=== PATIENT | male | born 1940 | race Caucasian/White ===

== ENCOUNTER → 2017-02-03 | Outpatient (CLI) | payer MEDICARE, BC ==
[~2017-02-03] MED LIST: ACTOS PO; ALLEGRA PO; KCL PO; LIPITOR; NORVASC PO
--- NOTE | ~2017-02-03 | US85 ---
[facility] A Service of [facility] & [facility] RADIOLOGY TEXT RESULTS PATIENT: MERCY NOLAND JR LOCATION: CNIV : 36 UNIT #: [id number] AGE: [address]: Jovany Armstrong MD SEX: M ORDER DR: [id number] [facility] [address] [place], [place] [address] [id number] O MR#: [id number] Acc #: [id number] NAME: MERCY NOLAND : 1940 SEX: M STUDY DATE/TIME: 02/03/2017 13:55 UNIT: CNIV ROOM: STUDY DESCRIPTION: WALTER Veins Unilat or Ltd Stdy Attending Physician: Jovany Armstrong M.D. Referring Physician: Jovany Armstrong M.D. Ordering Physician: Jovany Armstrong M.D. Primary Care Physician: Jovany Armstrong M.D. MEDICAL IMAGING REPORT This report is preliminary unless electronic signature is present EXAM Right lower extremity venous duplex scan, 02/03/2017 HISTORY Right calf swelling. FINDINGS High resolution B-mode imaging and color flow Doppler analysis was performed of the deep and superficial veins of the right lower extremity. All veins are fully compressible with no intraluminal thrombus. Spontaneous and phasic flow is noted in the right common femoral, deep femoral, femoral, and popliteal veins. Flow is demonstrated in the right anterior tibial, posterior tibial, and peroneal veins. Flow is also present in the right great saphenous vein. IMPRESSION Normal venous examination of the right lower extremity. No deep or superficial vein thrombosis in the right leg. Dictated by... Rogelio Bull M.D. THIS IS AN ELECTRONICALLY VERIFIED REPORT Rogelio Bull M.D. at 02/05/2017 7:42 AM [place] TD: 02/03/2017 16:18 JOB #: [id number] MEDICAL IMAGING REPORT Page 1 of 1 COPY
== END | disposition home or self-care (01) ==
LOC: CNIV 12:58
DX: R60.0 Localized edema (principal); E11.9 Type 2 diabetes mellitus without complications
CPT/HCPCS: 93971